=== PATIENT | female | born 1995 | race African-American/Black ===

== ENCOUNTER 2016-09-05 11:12 | Emergency (ER) | payer OTHER ==
[~2016-09-05] VITALS: Ht 162.5 cm; Wt 68.0 kg
[~2016-09-05 11:12] MED LIST: AMOXICILLIN500 MG PO; AMOXIL500 MG PO; AUGMENTIN 875 M1 TAB PO; BACTRIM DS 8001 TA1 PO; BACTRIM DS 8001 TAB PO; BACTROBAN CREAM15 GM PO; CIPRO500 MG PO; CLARITIN-D 12 H1 TAB PO; CLARITIN10 MG PO; FLOMAX0.4 MG PO; FLONASE ALLERG9.9 ML NAS; LOTRIMIN 1%15 GM T; MACROBID100 M1 PO; MACRODANTIN PO; NKHM; PERCOCET 325 MG1 TA2 PO; PHENERGAN W/DM120 ML PO; PREDNISONE10 MG PO; PRENATAL1 TA3 PO; TYLENOL W/CODEI1 TA2 PO; ZOFRAN4 MG PO
[2016-09-05 11:55] LABS: BASO % 0.2 % (0.0-1.0); EOS # 0.2 10*3/uL (0.0-0.4); EOS % 3.3 % (1.0-4.0); HEMATOCRIT 38.9 % (37.0-47.0); HEMOGLOBIN 13.2 g/dl (12.0-16.0); LYMPH # 1.9 10*3/uL (1.3-4.4); LYMPH % 37.7 % (27.0-41.0); MEAN CELL VOLUME 89.6 fl (81.0-99.0); MEAN CORPUSCULAR HGB 30.4 pg (27.0-31.0); MEAN CORPUSCULAR HGB CONC 33.9 g/dl (33.0-37.0); MEAN PLATELET VOLUME 8.5 fl (9.6-12.3); MONO # 0.5 10*3/uL (0.1-1.0); MONO % 9.9 % (3.0-9.0); NEUT # 2.5 10*3/uL (2.3-7.9); NEUT % 48.7 % (47.0-73.0); PLATELET COUNT AUTOMATED 286 10*3/uL (130-400); RED BLOOD COUNT 4.34 10*6/uL (4.10-5.10); RED CELL DISTRI WIDTH 12.6 % (0-14.5); WHITE BLOOD COUNT 5.2 10*3/uL (4.8-10.8)
[2016-09-05 12:11] LABS: ALBUMIN 3.7 gm/dl (3.1-4.5); ALKALINE PHOSPHATASE 62 U/L (45-117); BILIRUBIN, TOTAL 0.4 mg/dl (0.2-1.0); BUN 7 mg/dl (7-24); CARBON DIOXIDE 24 mmol/L (21-32); CHLORIDE 106 mmol/L (98-107); EST GLOM FILT AFRICAN AMERICAN > 60 ml/min; GLUCOSE 79 mg/dL (65-99); SGOT/AST 14 IU/L (3-35); SGPT/ALT 17 U/L (12-78); SODIUM 140 mmol/L (136-145); TOTAL PROTEIN 7.7 gm/dL (6.4-8.2)
[2016-09-05 12:15] LABS: BILIRUBIN NEGATIVE (NEGATIVE); BLOOD NEGATIVE (NEGATIVE); CLARITY SL CLOUDY (CLEAR); COLOR YELLOW (YELLOW); GLUCOSE NEGATIVE (NEGATIVE); KETONE NEGATIVE (NEGATIVE); LEUKO ESTERASE TRACE (NEGATIVE); NITRITE NEGATIVE (NEGATIVE); PH 7.5 (5.0-9.0); PROTEIN NEGATIVE (NEGATIVE); UROBILINOGEN 0.2 E.U./dl (0.2-1.0)
[2016-09-05 12:21] LABS: BACTERIA TRACE; RBC 0-2 rbc/hpf (0-2); URINE REFLEX COMMENT YES (NO)
[2016-09-05] MEDS ORDERED: VIBRAMYCIN100 MG PO (15:36)
[2016-09-05] MEDS ORDERED: FLAGYL500 MG PO (15:36)
[2016-09-05] MEDS ORDERED: ANAPROX DS550 MG PO (15:36)
== END 2016-09-05 15:39 | disposition home or self-care (01) ==
LOC: ED 11:12
PROVIDERS: Emergency Medicine
DX: N73.9 Female pelvic inflammatory disease, unspecified (principal); N70.91 Salpingitis, unspecified; F17.200 Nicotine dependence, unspecified, uncomplicated

== ENCOUNTER 2017-03-16 11:38 | Emergency (ER) | payer OTHER ==
[~2017-03-16] VITALS: Ht 162.5 cm; Wt 59.0 kg
[~2017-03-16 11:38] MED LIST changes: +ANAPROX DS550 MG PO; +FLAGYL500 MG PO; +VIBRAMYCIN100 MG PO
== END 2017-03-16 12:44 | disposition home or self-care (01) ==
LOC: ED 11:38
DX: Z00.8 Encounter for other general examination (principal); F17.200 Nicotine dependence, unspecified, uncomplicated

== ENCOUNTER 2017-04-19 08:54 | Emergency (ER) | payer OTHER ==
[~2017-04-19] VITALS: Ht 162.5 cm; Wt 59.0 kg
[2017-04-19] MEDS ORDERED: AVPAK AZITHROM250 M1 PO (09:18)
== END 2017-04-19 10:29 | disposition home or self-care (01) ==
LOC: ED 08:54
DX: J20.9 Acute bronchitis, unspecified (principal); F17.200 Nicotine dependence, unspecified, uncomplicated

== ENCOUNTER 2017-07-02 22:58 | Emergency (ER) | payer OTHER ==
[~2017-07-02] VITALS: Ht 162.5 cm; Wt 61.2 kg
[~2017-07-02 22:58] MED LIST changes: +AVPAK AZITHROM250 M1 PO
[2017-07-02 23:26] LABS: BILIRUBIN 1+ (NEGATIVE); BLOOD NEGATIVE (NEGATIVE); CLARITY SL CLOUDY (CLEAR); COLOR YELLOW (YELLOW); GLUCOSE NEGATIVE (NEGATIVE); KETONE 3+ (NEGATIVE); LEUKO ESTERASE NEGATIVE (NEGATIVE); NITRITE NEGATIVE (NEGATIVE); SPECIFIC GRAVITY 1.025 (1.005-1.030)
[2017-07-02 23:32] LABS: EPITHELIAL CELLS TNTC
[2017-07-03] MEDS ORDERED: REGLAN5 MG PO (00:24)
[2017-07-03] MEDS ORDERED: PRENATAL VITAM1 EAC5 PO (00:36)
== END 2017-07-03 00:45 | disposition home or self-care (01) ==
LOC: ED 22:58
PROVIDERS: Nurse Practitioner Family
DX: O21.9 Vomiting of pregnancy, unspecified (principal); O99.331 Smoking (tobacco) complicating pregnancy, first trimester; F17.200 Nicotine dependence, unspecified, uncomplicated; Z3A.01 Less than 8 weeks gestation of pregnancy; Z79.899 Other long term (current) drug therapy

== ENCOUNTER 2017-10-06 18:16 | Emergency (ER) | payer OTHER ==
[~2017-10-06] VITALS: Wt 65.8 kg
[~2017-10-06 18:16] MED LIST changes: +PRENATAL VITAM1 EAC5 PO; +REGLAN5 MG PO
[2017-10-06] MEDS ORDERED: ELIMITE 5%60 GM T (19:04)
== END 2017-10-06 19:18 | disposition home or self-care (01) ==
LOC: ED 18:16
DX: O26.892 Other specified pregnancy related conditions, second trimester (principal); B86 Scabies; Z3A.21 21 weeks gestation of pregnancy

== ENCOUNTER 2017-11-07 21:23 | Emergency (ER) | payer OTHER ==
[~2017-11-07] VITALS: Ht 162.5 cm; Wt 65.8 kg
[~2017-11-07 21:23] MED LIST changes: +ELIMITE 5%60 GM T
[2017-11-07] MEDS ORDERED: KENALOG 0.1%80 GM T (22:06)
[2017-11-07] MEDS ORDERED: ELIMITE 5%60 GM T (22:06)
== END 2017-11-07 22:20 | disposition home or self-care (01) ==
LOC: ED 21:23
DX: O99.712 Diseases of the skin and subcutaneous tissue complicating pregnancy, second trimester (principal); B86 Scabies; O99.332 Smoking (tobacco) complicating pregnancy, second trimester; F17.200 Nicotine dependence, unspecified, uncomplicated; Z79.899 Other long term (current) drug therapy; Z3A.26 26 weeks gestation of pregnancy

== ENCOUNTER 2019-01-01 14:56 | Emergency (ER) | payer OTHER ==
[~2019-01-01] VITALS: Ht 162.5 cm; Wt 68.9 kg
[~2019-01-01 14:56] MED LIST changes: +KENALOG 0.1%80 GM T
[2019-01-01 15:48] LABS: BILIRUBIN NEGATIVE (NEGATIVE); BLOOD 3+ (NEGATIVE); CLARITY CLOUDY (CLEAR); COLOR YELLOW (YELLOW); GLUCOSE NEGATIVE (NEGATIVE); KETONE TRACE (NEGATIVE); LEUKO ESTERASE 2+ (NEGATIVE); NITRITE POSITIVE (NEGATIVE); SPECIFIC GRAVITY >= 1.030 (1.005-1.030); UROBILINOGEN 0.2 E.U./dl (0.2-1.0)
[2019-01-01 16:43] LABS: BACTERIA 4+; WBC TNTC wbc/hpf (0-5)
[2019-01-01 16:44] LABS: MUCOUS 2+
[2019-01-01] MEDS ORDERED: AMINOPHYLLIN200 MG PO (16:58)
[2019-01-01] MEDS ORDERED: PYRIDIUM200 M1 PO (16:58)
== END 2019-01-01 17:07 | disposition home or self-care (01) ==
LOC: ED 14:56
PROVIDERS: Physician Assistant
DX: N39.0 Urinary tract infection, site not specified (principal); Z87.440 Personal history of urinary (tract) infections

== ENCOUNTER 2019-02-09 19:33 | Emergency (ER) | payer OTHER ==
[~2019-02-09] VITALS: Ht 162.5 cm; Wt 68.9 kg
[~2019-02-09 19:33] MED LIST changes: +AMINOPHYLLIN200 MG PO; +PYRIDIUM200 M1 PO
[2019-02-09 19:51] LABS: BILIRUBIN NEGATIVE (NEGATIVE); BLOOD 2+ (NEGATIVE); CLARITY CLEAR (CLEAR); COLOR YELLOW (YELLOW); GLUCOSE NEGATIVE (NEGATIVE); KETONE NEGATIVE (NEGATIVE); LEUKO ESTERASE 2+ (NEGATIVE); NITRITE NEGATIVE (NEGATIVE); UROBILINOGEN 0.2 E.U./dl (0.2-1.0)
[2019-02-09 20:04] LABS: WBC TNTC wbc/hpf (0-5)
[2019-02-09 20:06] LABS: BACTERIA 1+
[2019-02-09] MEDS ORDERED: MACROBID100 M1 PO (20:10)
== END 2019-02-09 23:48 | disposition home or self-care (01) ==
LOC: ED 19:33
PROVIDERS: Nurse Practitioner Family
DX: N39.0 Urinary tract infection, site not specified (principal); F17.200 Nicotine dependence, unspecified, uncomplicated; Z79.2 Long term (current) use of antibiotics; Z79.899 Other long term (current) drug therapy

== ENCOUNTER 2019-03-22 22:37 | Emergency (ER) | payer OTHER ==
[~2019-03-22] VITALS: Ht 170.1 cm; Wt 63.5 kg
[2019-03-22 23:26] LABS: BILIRUBIN NEGATIVE (NEGATIVE); BLOOD NEGATIVE (NEGATIVE); CLARITY SL CLOUDY (CLEAR); COLOR YELLOW (YELLOW); GLUCOSE NEGATIVE (NEGATIVE); KETONE NEGATIVE (NEGATIVE); LEUKO ESTERASE NEGATIVE (NEGATIVE); NITRITE NEGATIVE (NEGATIVE); UROBILINOGEN 0.2 E.U./dl (0.2-1.0)
[2019-03-22 23:27] LABS: ALBUMIN 3.4 gm/dl (3.1-4.5); ALKALINE PHOSPHATASE 50 U/L (45-117); BUN 9 mg/dl (7-24); CHLORIDE 106 mmol/L (98-107); CREATININE 0.49 mg/dL (0.55-1.02); LIPASE 97 U/L (73-393); POTASSIUM 3.7 mmol/L (3.5-5.1); SGOT/AST 8 IU/L (3-35); SGPT/ALT 16 U/L (12-78); SODIUM 136 mmol/L (136-145); TOTAL PROTEIN 7.1 gm/dL (6.4-8.2)
[2019-03-22 23:32] LABS: BASO % 0.4 % (0.0-1.0); EOS # 0.1 10*3/uL (0.0-0.4); EOS % 2.1 % (1.0-4.0); HEMATOCRIT 35.9 % (37.0-47.0); HEMOGLOBIN 11.8 g/dl (12.0-16.0); LYMPH # 2.3 10*3/uL (1.3-4.4); LYMPH % 43.8 % (27.0-41.0); MEAN CELL VOLUME 92.8 fl (81.0-99.0); MEAN CORPUSCULAR HGB 30.5 pg (27.0-31.0); MEAN CORPUSCULAR HGB CONC 32.9 g/dl (33.0-37.0); MEAN PLATELET VOLUME 8.9 fl (9.6-12.3); MONO # 0.5 10*3/uL (0.1-1.0); MONO % 10.1 % (3.0-9.0); NEUT # 2.3 10*3/uL (2.3-7.9); NEUT % 43.2 % (47.0-73.0); PLATELET COUNT AUTOMATED 250 10*3/uL (130-400); RED BLOOD COUNT 3.87 10*6/uL (4.10-5.10); RED CELL DISTRI WIDTH 12.5 % (0-14.5); WHITE BLOOD COUNT 5.3 10*3/uL (4.8-10.8)
[2019-03-22 23:37] LABS: EPITHELIAL CELLS TNTC
[2019-03-22 23:38] LABS: BACTERIA TRACE; WBC 0-2 wbc/hpf (0-5)
[2019-03-23] MEDS ORDERED: DICLEGIS DR 101 EACH PO (02:08)
== END 2019-03-23 02:29 | disposition home or self-care (01) ==
LOC: ED 22:37
PROVIDERS: Nurse Practitioner Family
DX: O26.891 Other specified pregnancy related conditions, first trimester (principal); R11.2 Nausea with vomiting, unspecified; R19.7 Diarrhea, unspecified; R10.30 Lower abdominal pain, unspecified; Z3A.01 Less than 8 weeks gestation of pregnancy; Z79.899 Other long term (current) drug therapy; Z79.2 Long term (current) use of antibiotics

== ENCOUNTER 2019-08-17 09:03 | Emergency (ER) | payer OTHER ==
[~2019-08-17] VITALS: Ht 162.5 cm; Wt 68.0 kg
[~2019-08-17 09:03] MED LIST changes: +DICLEGIS DR 101 EACH PO
[2019-08-17 09:49] LABS: BILIRUBIN NEGATIVE (NEGATIVE); BLOOD 3+ (NEGATIVE); CLARITY CLOUDY (CLEAR); COLOR YELLOW (YELLOW); GLUCOSE NEGATIVE (NEGATIVE); KETONE NEGATIVE (NEGATIVE); LEUKO ESTERASE 3+ (NEGATIVE); NITRITE NEGATIVE (NEGATIVE); SPECIFIC GRAVITY 1.025 (1.005-1.030); UROBILINOGEN 0.2 E.U./dl (0.2-1.0); WBC TNTC wbc/hpf (0-5)
[2019-08-17 09:51] LABS: BACTERIA 3+; RBC 51-100 rbc/hpf (0-2)
[2019-08-17] MEDS ORDERED: MACROBID100 M1 PO (10:09)
[2019-08-17] MEDS ORDERED: PYRIDIUM200 M1 PO (10:09)
== END 2019-08-17 10:15 | disposition home or self-care (01) ==
LOC: ED 09:03
PROVIDERS: Emergency Medicine
DX: N39.0 Urinary tract infection, site not specified (principal)